=== PATIENT | male | born 1960 | race Caucasian/White ===

== ENCOUNTER 2018-11-24 12:58 | Inpatient (IN) | payer OTHER ==
[~2018-11-24] VITALS: Ht 167.6 cm; Wt 59.0 kg
[2018-11-24 13:18] VITALS: Ht 167.6 cm; Wt 59.0 kg
--- NOTE | 2018-11-24 13:43 | NUR ---
DR HAYDEN AT BEDSIDE FOR EVAL. PT HERE FOR N/V FOR 3 DAYS WITH CHILLS. UNABLE TO EAT OR KEEP ANY FLUIDS DOWN. PT C/O PAIN GENERALIZED 07/10. PT ARRIVES ALERT AND ORIENTED WITH NO DISTRESS NOTED. DR HAYDEN SAW PT. UPON ARRIVAL PT HAD HIGH BLOOD SUGAR AND BROUGHT TO BED FOR MD BOYD
--- NOTE | 2018-11-24 14:39 | NUR ---
PT LEFT FOR CT VIA RNEY
--- NOTE | 2018-11-24 14:49 | NUR ---
PT BACK FROM CT VIA [facility]
[2018-11-24] MEDS ORDERED: METFORMIN HCL1000 MG PO (14:58)
[2018-11-24] MEDS ORDERED: LANTUS SOLOS100 U/M1 SQ (14:58)
[2018-11-24] MEDS ORDERED: HUMI SC (14:59)
[2018-11-24 15:00] LABS: BASOPHIL % 0.1 % (0-2); PLATELET COUNT 290 x10^3mcL (130-400); RED CELL DISTRIBUTION WIDTH 13.2 % (11.5-14.5)
--- NOTE | 2018-11-24 15:01 | NUR ---
PT TO BE PREPPED FOR ADMISSION TO ICU
[2018-11-24 15:13] LABS: ALBUMIN 3.9 g/dL (3.4-5.0); ALKALINE PHOSPHATASE 67 U/L (46-116); ALT/SGPT 15 U/L (16-63); AST/SGOT 11 U/L (15-37); BILIRUBIN TOTAL 0.6 mg/dL (0.20-1.00); CHLORIDE SERUM 92 mmol/L (98-107); GFR1 37 mL/min; MAGNESIUM 2.1 mg/dL (1.8-2.4); POTASSIUM SERUM 3.9 mmol/L (3.5-5.1); SODIUM SERUM 134 mmol/L (136-145); TOTAL PROTEIN, SERUM 8.2 g/dL (6.4-8.2)
[2018-11-24 15:31] LABS: UA SPECIFIC GRAVITY >=1.030 (1.005-1.035); microscopic required? YES; urine erythrocyte NEGATIVE (NEGATIVE)
[2018-11-24 15:34] LABS: GLUCOSE SERUM 560 mg/dL (74-106)
[2018-11-24 15:52] LABS: AMPHETAMINE QUAL UR NONE DETECTED (See below)
[2018-11-24 16:00] LABS: CARBON DIOXIDE 6.3 mmol/L (21-32)
[2018-11-24 16:07] LABS: CHOLESTEROL/HDL RATIO 4.1; PHOSPHOROUS 6.2 mg/dL (2.5-4.9)
[2018-11-24 16:08] LABS: T3 TOTAL 0.34 ng/mL
[2018-11-24 16:17] LABS: FREE T4 1.04 ng/dL (0.76-1.46); FREE THYROXINE INDEX 2.8 ug/dL (1.4-4.5); T4(THYROXINE) 8.3 ug/dL (4.7-13.3)
--- NOTE | 2018-11-24 16:25 | NUR ---
INSULIN DRIP STARTED PER DR HAYDEN ORDERS AT 6UNITS PER HOUR
--- NOTE | 2018-11-24 16:27 | NUR ---
REPORT GIVEN TO TREVER ICU NURSE
--- NOTE | 2018-11-24 16:35 | NUR ---
PT ARRIVED FROM ED AT THIS TIME VIA [facility] ACCOMPANIED BY RN AND ERT. ATTACHED TO COOK SAUCE. PT AAOX4. SPEECH SLURRED, APPROPRIATE. NO FACIAL DROOP. PUPILS 3 MM, BRISK AND PERRLA. RA. CHEST EXPANSION SYMM, BREATHING E/U AND REGULAR EFFORT. LUNG SOUNDS CTA IN BILATERAL LOBES. ABD SOFT, NONDISTENDED. BOWEL SOUNDS ACTIVE X4 QUADRANTS. VOIDS TO URINAL. DENIES DYSURIA. REDNESS NOTED TO TISSUE SURROUNDING OU. PULSES MODERATE X4. EXTREMITIES WARM, DRY AND PINK. NO EDEMA NOTED. NO COUGH NOTED. CAP REFILL IMM. ABLE TO TRANSFER FROM [facility] TO ICU BED W/O ASSISTANCE. LAC PERIPHERAL IV INFUSING, SITE WNL AND DRESSING CDI. NS AND INSULIN ATTACHED TO PT, CLAMPED FOR TRANSFER. VS ON ARRIVAL: TEMP 97.8, HR 117, BP 136/88 (104), RR 18, O2 100%, HT 5'6", WT 53.5 KG
--- NOTE | 2018-11-24 16:40 | NUR ---
YOKASTA HOSKINS RN AND MYSELF SPEAKING WITH PT AT BEDSIDE. STS HE HAS BEEN RECEIVING TREATMENT FOR HIS DIABETES AND THAT "IT CAN GO AWAY". FERMENTOLOGIST INFORMED PT THAT DIABETES IS NOT CURABLE BUT IT IS MANAGEABLE. PT STS THAT HIS DIABETES HAS GONE AWAY. ASKED PT IF HE WOULD LIKE TO RECEIVE DIABETES MANAGEMENT EDUCATION DURING HIS STAY AND PT STS "I JUST WANT TO GET BETTER AND LEAVE".
[2018-11-24 16:44] LABS: AMYLASE 26 U/L (25-115); LIPASE 76 IU/L (73-393)
--- NOTE | 2018-11-24 16:49 | NUR ---
IVF OF NS INITIATED AT 250 ML/HR AMD INSULIN DRIP RESUMED AT 0.01 U/KG/HR.
--- NOTE | 2018-11-24 17:04 | NUR ---
PTS SON, JAELLE, AND AT BEDSIDE.
[2018-11-24 17:05] VITALS: BP 135/88
[2018-11-24 18:28] VITALS: BP 135/88
--- NOTE | 2018-11-24 19:01 | NUR ---
REPORT GIVEN TO LENIN CHAUDHRY. ALL QUESTIONS ADDRESSED. WILL ENDORSE CARE
[2018-11-24 19:18] VITALS: BP 132/82
--- NOTE | 2018-11-24 19:30 | NUR ---
RECEIVED REPORT FROM TREVER CHAUDHRY FOR CONTINUITY OF CARE. PT SEEN LYING IN BED WITH AT BEDSIDE. PT IS A/O X4, SPEECH SLIGHTLY SLURRED BUT APPROPRIATE. PTS FACE AND NECK AREA APPEARS FLUSHED. PT DENIES ANY PAIN. DENIES ANY N/V/D AT THIS TIME. NO ACUTE DISTRESS NOTED. NO SOB NOTED, RESPS E/U ON ROOM AIR. CHEST RISE EQUAL AND SYMMETRICAL. LUNG SOUNDS CLEAR LITA. ABD FLAT, SOFT, NONTENDER TO TOUCH. BOWEL SOUNDS ACTIVE. SKIN INTACT. IV TO LAC G 20 INTACT AND PATENT, DSG CDI. IVF NS INFUSING @ 250 ML/HR. INSULIN GTT INFUSING @ 0.1 UNITS/KG/HR. GEN WEAKNESS NOTED. ABLE TO MOVE ALL EXT. PT ABLE TO REPOSITION SELF. PT TEACHING PROVIDED REGARDING DKA PROTOCOL AND PLAN OF CARE, VERBALIZED UNDERSTANDING. INSTRUCTED TO CALL FOR ANY ASSISTANCE. CALL LIGHT WITHIN REACH. WILL CONTINUE TO MONITOR.
[2018-11-24 20:17] LABS: CALCIUM 7.3 mg/dL (8.5-10.1); CARBON DIOXIDE 14.1 mmol/L (21-32); CREATININE SERUM 1.7 mg/dL (0.7-1.3); MAGNESIUM 1.6 mg/dL (1.8-2.4); PHOSPHOROUS 1.7 mg/dL (2.5-4.9)
--- NOTE | 2018-11-24 21:15 | NUR ---
BS 174. INSULIN GTT TITRATED TO 0.05 UNITS/KG/HR. IVF CHANGED TO D5 1/2 NS @ 250ML/HR. DR STEPHEN MADE AWARE.
--- NOTE | 2018-11-24 22:34 | NUR ---
PT AWAKE, PROVIDED SANDWICH, SUGAR FREE PUDDING, AND APPLE JUICE.
[2018-11-24 23:36] VITALS: BP 124/70
--- NOTE | 2018-11-24 23:50 | NUR ---
BS 223, IVF TITRATED TO 230ML/HR.
--- NOTE | 2018-11-25 00:03 | NUR ---
LAB AT BEDSIDE
--- NOTE | 2018-11-25 01:07 | NUR ---
BS 249, IVF TITRATED TO 200 ML/HR
[2018-11-25 01:08] LABS: CALCIUM 7.3 mg/dL (8.5-10.1); CARBON DIOXIDE 15.9 mmol/L (21-32); CREATININE SERUM 1.6 mg/dL (0.7-1.3); MAGNESIUM 1.5 mg/dL (1.8-2.4); PHOSPHOROUS 1.3 mg/dL (2.5-4.9)
--- NOTE | 2018-11-25 01:50 | NUR ---
NS 239, IVF TITRATED TO 180 ML/HR.
--- NOTE | 2018-11-25 02:57 | NUR ---
BS 261, IVF TITRATED TO 150 ML/HR.
[2018-11-25 03:13] VITALS: BP 119/76
--- NOTE | 2018-11-25 04:16 | NUR ---
BS 244, IVF TITRATED TO 130ML/HR.
[2018-11-25 04:48] LABS: BASOPHIL % 0.3 % (0-2); PLATELET COUNT 211 x10^3mcL (130-400); RED CELL DISTRIBUTION WIDTH 12.8 % (11.5-14.5)
[2018-11-25 04:59] LABS: CALCIUM 7.4 mg/dL (8.5-10.1); CARBON DIOXIDE 17.8 mmol/L (21-32); CREATININE SERUM 1.5 mg/dL (0.7-1.3); MAGNESIUM 1.6 mg/dL (1.8-2.4); PHOSPHOROUS 1.4 mg/dL (2.5-4.9)
[2018-11-25 05:02] LABS: POTASSIUM SERUM 2.7 mmol/L (3.5-5.1)
--- NOTE | 2018-11-25 06:00 | NUR ---
DR BLANKENSHIP AT BEDSIDE. UPDATED ON STATUS. MADE AWARE REGARDING K+ 2.7. STATES WILL ORDER K-RIDER.
[2018-11-25 07:58] VITALS: BP 122/72
[2018-11-25 08:58] LABS: CALCIUM 7.8 mg/dL (8.5-10.1); CARBON DIOXIDE 17.3 mmol/L (21-32); CREATININE SERUM 1.4 mg/dL (0.7-1.3); MAGNESIUM 1.5 mg/dL (1.8-2.4); PHOSPHOROUS 1.3 mg/dL (2.5-4.9)
[2018-11-25 09:04] LABS: POTASSIUM SERUM 2.7 mmol/L (3.5-5.1)
--- NOTE | 2018-11-25 09:31 | NUR ---
INITIATED 40 MEQ IV K-RIDER WITH LIDOCAINE FOR K+ 2.7.
--- NOTE | 2018-11-25 10:09 | NUR ---
BS 177 D51/2NS 150.
--- NOTE | 2018-11-25 10:26 | NUR ---
PT AMBULATED WITH STEADY GAIT TO BEDSIDE COMMODE. CALL LIGHT WITHIN REACH.
--- NOTE | 2018-11-25 10:33 | NUR ---
DR. SANCHEZ AT BEDSIDE WITH RESIDENTS AT ROUNDS. PROIVDED UPDATES, RECIEVED NO NEW ORDERS.
--- NOTE | 2018-11-25 11:13 | NUR ---
BS 164, LUNCH TRAY COMING. INSULIN DRIP AT 0.05U/HR.
[2018-11-25 11:30] VITALS: BP 113/70
--- NOTE | 2018-11-25 11:32 | NUR ---
GEMMA CODING DIRECTOR AT BEDSIDE FOR LAB DRAWN.
--- NOTE | 2018-11-25 11:32 | NUR ---
NEGRO FROM [facility], PROVIDED UPDATES TO HER. LENIN AT BEDSIDE EDUCATING PT.
[2018-11-25 12:02] LABS: CALCIUM 7.9 mg/dL (8.5-10.1); CARBON DIOXIDE 18.8 mmol/L (21-32); CHLORIDE SERUM 108 mmol/L (98-107); CREATININE SERUM 1.3 mg/dL (0.7-1.3); GFR1 > 60 mL/min; GLUCOSE SERUM 164 mg/dL (74-106); MAGNESIUM 2.2 mg/dL (1.8-2.4); PHOSPHOROUS 1.2 mg/dL (2.5-4.9); POTASSIUM SERUM 3.6 mmol/L (3.5-5.1); SODIUM SERUM 137 mmol/L (136-145)
--- NOTE | 2018-11-25 13:56 | NUR ---
Initial Nutrition Assessment- Dx: DKA PMHx: DM type 2 PSHx: none Labs: K 2.7L, BG 149H, BUN 21H, CRE 1.4H, Ca 7.8L, TG 257H, CHOL 226H, HbA1c 10H Meds: colace, D5%/NaCl IV, humulin, zosyn Diet: CCHO diet PO Intake: 40% of snack 11/25, pt ate pudding, sandwich and apple juice Ht: 5'6 Wt: 118 lb, 54 kg BMI: 21 kg/m2 IBW: 142 lb, 65 kg %IBW: 83 UBW: unknown Age: 57 yrs old Food Allergies: unknown Skin: is intact. Juan Carlos: 19 Edema: no edema noted. GI: abd is soft and non-distended w/ active bowel sounds. Last BM 11/23/18, loose. Trigger received for unintentional wt loss >10# x1 month. Pt is admitted w/ cc of 2 days of worsening generalized weakness associated nausea, non-bloody vomiting and lack of appetite w/ polyuria and polydipsia. Pt stated that he skipped his insulin on the day of admission because he didn't have any appetite and did not eat anything. Pt seen in bed w/ rags laborer at bedside for blood draw. Pt did not want to s/w RD after I stated that nutrition education will be provided after assessment interview. RD reported pt's behavior to RN and RN reported that pt is in denial of his current condition. No plans as of yet to transfer pt as pt is still on insulin drip. No family at bedside at this time. RN also reported that pt w/ poor appetite, he only had milk, juice and a few bites of toast for breakfast this morning. Pt is not yet meeting adequate nutrition. Pt is non-compliant and RD was unable to verify trigger for unintentional wt loss >10# x1 month. Awaiting call back from MD for diet rec. Problem with: N/V/D/C: none Problems with: Chewing: no Swallowing: no Current appetite: poor appetite Recent wt change: unknown %wt change: n/a Vitamin/Supplement use: unknown Special diet at home: regular diet Physical activity: none Education: was not provided d/t pt declined to s/w RD. Estimated Nutritional Needs Based on ideal body weight 65 kg Energy: 1187-2216 kcal/d (25-30 kcal/kg-maintenance) Protein: 52-65 g/d (.8-1 g/kg-maintenance and preservation of lean body mass) Fluid: 0374-9904 ml/d (1 ml/kcal-fluid balance) or per doctor Nutrition Diagnosis Altered nutrition related labs related to endocrine dysfunction as evidenced by elevated BG and HbA1c lab values. Increased risk for malnutrition related to chronic illness as evidenced by possible unintentional wt loss >10# x 1 month and poor PO intake. Intervention 1. Recommend adding Low Cholesterol to current [facility] diet. 2. Encourage pt to increase PO intake. Monitor/Evaluate Goal: PO intake at least 75% of estimated needs Monitor: PO intake, Labs, GI function F/U in 2-3 days as high risk (11/27-11/28)
--- NOTE | 2018-11-25 13:57 | NUR ---
1. Recommend adding Low Cholesterol to current [facility] diet. 2. Encourage pt to increase PO intake.
--- NOTE | 2018-11-25 14:23 | NUR ---
2nd try for nutrition education. Pt is sleeping per RN Min. 11/25 1015.
--- NOTE | 2018-11-25 15:10 | NUR ---
BLOOD SUGAR 211, LOWERE D51/2NS TO ACHIEVE BLOOD SUGAR LOWER THAN 150 PER DKA PROTOCOL.
--- NOTE | 2018-11-25 15:10 | NUR ---
BLOOD SUGAR 211, LOWERED D51/2NS TO 100ML/HR TO ACHIEVE BLOOD SUGAR BETWEEN 150-200 PER DKA PROTOCOL.
[2018-11-25 15:12] VITALS: BP 104/63
[2018-11-25 15:57] LABS: CALCIUM 7.7 mg/dL (8.5-10.1); CARBON DIOXIDE 19.5 mmol/L (21-32); CREATININE SERUM 1.4 mg/dL (0.7-1.3); PHOSPHOROUS 1.5 mg/dL (2.5-4.9); POTASSIUM SERUM 3.4 mmol/L (3.5-5.1)
--- NOTE | 2018-11-25 16:05 | NUR ---
BLOOD SUGAT 156 INCREASED D51/2NS TO 130ML/HR TO ACHIEVE BLOOD SUGAR BETWEEN 150-200 PER DKA PROTOCOL.
--- NOTE | 2018-11-25 16:20 | NUR ---
ANION GAP 10.5 DR. MARTÍNEZ IS NOTIFIED.
--- NOTE | 2018-11-25 18:10 | NUR ---
REPORT GIVEN TO DELMAR CHAUDHRY PT WILL BE TRANSFERRING TO ROOM 205 TO M/S BY WHEELCHAIR ON ROOM AIR.
--- NOTE | 2018-11-25 18:41 | NUR ---
RECEIVED PT TRANSFER FROM ICU BY WHEELCHAIR. PT'S FRIENDS AT BED SIDE. PT AA/O X 3. PT AMBULATED WITH STEADY GAIT. PT BREATHING ON RA, EVEN, UNLABORED. PT COMPLAIN OF EPIGASTRIC PAIN, WILL PROVIDE MANAGEMENT PER ORDER. IV SITE PATENT, INTACT. IVF INFUSING WELL.
[2018-11-25 18:50] VITALS: BP 136/82
--- NOTE | 2018-11-25 19:14 | NUR ---
ENDORSE PT CARE TO COMING NURSE. PT REST ON BED, NO COMPLAIN OF PAIN AT THIS TIME. NO DISTRESSED NOTED.
--- NOTE | 2018-11-25 19:15 | NUR ---
PT RECIEVED FROM THE DAY SHIFT RN. PT IS ALERT AND ORIENTED X4, NO DISTRESS NOTED, SAFETY AND COMFORT MEASURES IMPLEMENTED, BED IN LOWEST POSITION, CALL LIGHT WITHIN REACH, WILL CONTINUE TO MONITOR AT THIS TIME.
[2018-11-25 20:55] VITALS: BP 125/78
--- NOTE | 2018-11-26 00:45 | NUR ---
PT IS RESTING IN BED WITH EYES CLOSED AT THIS TIME. NO DISTRESS NOTED, SAFETY AND COMFORT MEASURES MAINTAINED, BED IN LOWEST POSITION, CALL LIGHT WITHIN REACH. WILL CONTINUE TO MONITOR AT THIS TIME.
--- NOTE | 2018-11-26 01:52 | NUR ---
PT IS RESTING IN BED WITH EYES CLOSED AT THIS TIME. PT IV IS INFUSING AT THIS TIME AND INTACT. NO DISTRESS NOTED, SAFETY AND COMFORT MEASURES MAINTAINED, BED IN LOWEST POSITION, CALL LIGHT WITHIN REACH. WILL CONTINUE TO MONITOR.
[2018-11-26 05:15] VITALS: BP 119/83
--- NOTE | 2018-11-26 05:31 | NUR ---
PT SLEPT IN LONG INTERVALS THROUGHOUT THE NIGHT, LEVEMIR 30 UNITS GIVEN AND 12 UNITS OF REGULAR INSULIN GIVEN FOR BG OF 335 EARLIER IN THE SHIFT, RANDOM BG CHECK DONE AT 0100 AND WAS 176. PT GIVEN PUDDING TO EAT BUT PT DID NOT FINSIH THE PUDDING. MORNING BG CHECK WAS 46 1ST CHECK AND 2ND CHECK WAS 42. D5 [address] ACEVEDO MADE AWARE OF SITUATION. WILL RECHECK AT 0540. PT WAS ASYMPTOMATIC, DENIES DIZZINESS, NO CONFUSION NOTED, PT WAS ALERT AND ORIENTED X4, SAFETY AND COMFORT MEASURES MAINTAINED, BED IN LOWEST POSITION, CALL LIGHT WITHIN REACH. WILL ENDORSE CONTINUITY OF CARE TO THE ONCOMING RN, WILL CONTINUE TO MONITOR AT THIS TIME.
--- NOTE | 2018-11-26 05:40 | NUR ---
BG RECHECK DONE BG WAS 192, NO INSULIN GIVEN DUE TO D5 50 ML GIVEN TO THE PATIENT. WILL CONTINUE TO MONITOR AT THIS TIME.
[2018-11-26 06:59] LABS: BASOPHIL % 0.6 % (0-2); PLATELET COUNT 161 x10^3mcL (130-400); RED CELL DISTRIBUTION WIDTH 13.3 % (11.5-14.5)
[2018-11-26 07:08] LABS: CALCIUM 7.9 mg/dL (8.5-10.1); CHLORIDE SERUM 108 mmol/L (98-107); CREATININE SERUM 0.9 mg/dL (0.7-1.3); GFR1 > 60 mL/min; GLUCOSE SERUM 184 mg/dL (74-106); POTASSIUM SERUM 3.4 mmol/L (3.5-5.1); SODIUM SERUM 141 mmol/L (136-145)
--- NOTE | 2018-11-26 07:45 | NUR ---
RECEIVED PT SLEEPING IN THE BED. EASILY AROUSABLE AND VERBALLY RESPONDING. DENIES ANY PAIN. STABLE. SAFTEY PRECAUTIONS ARE IN PLACE. WILL MONITOR.
[2018-11-26 09:43] VITALS: BP 135/80
--- NOTE | 2018-11-26 13:30 | NUR ---
PT RESTING IN BED COMFORTABLY AFTER LUNCH. PT IS STABLE. DENIES PAIN. MILD FATIGUE NOTED. SAFTEY PRECAUTIONS ARE IN PLACE. WILL MONITOR.
--- NOTE | 2018-11-26 16:45 | NUR ---
PT RESTING IN BED COMFORTABLY. STABLE. FAMILY AT BEDSIDE. WILL MONITOR.
[2018-11-26 17:44] VITALS: BP 144/88
--- NOTE | 2018-11-26 19:15 | NUR ---
PT RESTING IN BED COMFORTABLY. DENIES PAIN THIS TIME. STABLE. GAVE REPORT TO BATTERY INSPECTOR NURSE.
--- NOTE | 2018-11-26 19:30 | NUR ---
PT RECIEVED FROM THE DAY SHIFT RN, PT IS ALERT AND ORIENTED X4, PT IS CALM AND COOPERATIVE WITH CARE. NO DISTRESS NOTED, NO JVD NOTED, NO SOB NOTED, SAFETY AND COMFORT MEASURES MAINTAINED, BED IN LOWEST POSITION, CALL LIGHT WITHIN REACH, WILL CONTINUE TO MONTIOR AT THIS TIME.
--- NOTE | 2018-11-26 20:43 | NUR ---
DR STEPHEN MADE AWARE OF BG BEING 294, PER DR STEPHEN HOLD REGULAR INSULIN DOSE AND ONLY GIVE THE 15 UNITS OF LEVEMIR AT THIS TIME. NO FURTHER ORDERS AT THIS TIME.
[2018-11-26 21:00] VITALS: BP 128/80
--- NOTE | 2018-11-27 02:00 | NUR ---
PT IS RESTING IN BED WITH EYES CLOSED AT THIS TIME. NO ACUTE DISTRESS NOTED, NO SOB NOTED. SAFETY AND COMFORT MEASURES MAINTAINED, BED IN LOWEST POSITION, CALL LIGHT WITHIN REACH, WILL CONTINUE TO MONITOR AT THIS TIME.
--- NOTE | 2018-11-27 04:03 | NUR ---
PT IS RESTING IN BED WITH EYES CLOSED AT THIS TIME. NO DISTRESS NOTED, SAFETY AND COMFORT MEASURES IN PLACE, BED IN LOWEST POSITION, CALL LIGHT WITHIN REACH, WILL CONTINUE TO MONITOR AT THIS TIME.
[2018-11-27 04:43] VITALS: BP 117/79
--- NOTE | 2018-11-27 05:05 | NUR ---
PT RESTED IN LONG INTERVALS THROUGHOUT THE SHIFT. NO ACUTE DISTRESS NOTED, PT HAS BEEN CALM AND COOPERATIVE WITH CARE. NO SOB NOTED, NO COMPLAINT OF PAIN AT THIS TIME. PT TOLERATING DIET WELL. SAFETY AND COMFORT MEASURES MAINTAINED, BED IN LOWEST POSITION, CALL LIGHT WITHIN REACH, WILL ENDORSE CONTINUITY OF CARE TO THE ONCOMING RN, WILL CONTINUE TO MONITOR AT THIS TIME.
[2018-11-27 07:07] LABS: BASOPHIL % 0.6 % (0-2); PLATELET COUNT 168 x10^3mcL (130-400)
[2018-11-27 07:08] LABS: CALCIUM 8.2 mg/dL (8.5-10.1); CARBON DIOXIDE 29.5 mmol/L (21-32); CHLORIDE SERUM 105 mmol/L (98-107); CREATININE SERUM 0.7 mg/dL (0.7-1.3); GFR1 > 60 mL/min; GLUCOSE SERUM 78 mg/dL (74-106); SODIUM SERUM 142 mmol/L (136-145)
[2018-11-27 07:26] LABS: POTASSIUM SERUM 2.9 mmol/L (3.5-5.1)
--- NOTE | 2018-11-27 09:06 | NUR ---
AM MEDS GIVEN. PT TOLERATED WELL. NO SIGNS OF RESPIRATORY DISTRESS NOTED. PT DENIES ANY SOB. WILL CONTINUE TO MONIOTR. CALL LIGHT IN REACH. BED IN LOWEST POSITION.
[2018-11-27 09:31] VITALS: BP 123/68
--- NOTE | 2018-11-27 11:15 | NUR ---
PT SITTING UP IN BED WATCHING TV. NO RESP DISTRESS NOTED. DENIES EXCESSIVE PAIN AT THIS TIME. BED IN LOWEST POSITION. CALL LIGHT IN REACH. WILL CONTINUE TO MONITOR.
--- NOTE | 2018-11-27 12:36 | NUR ---
Nutrition Education Provided nutrition education on the topics of Carbohydrate Counting for Diabetes. Handouts from [employer] were reviewed and provided to pt. RD contact information were provided as well for future nutrition related questions. Pt requested for [place] version on the handouts. RD to provide.
--- NOTE | 2018-11-27 12:47 | NUR ---
Follow-up Nutrition Assessment- Dx: DKA Labs: (11/27) K 2.9 L, BG 78 WNL (improved), Ca 8.2 L, H/H 13.9 WNL/39 L Meds: colace, D50%, humulin, K-phos neutral, levemir, zofran Diet: CCHO diet w/ Glucerna QD x 2 days PO intake:(11/25) 23% x 3 meals- negligible PO intake, (11/26) 83% x 3 meals (good-improved) Weights: (11/24) 118 lb, (11/25) 130 lb, (11/27) 129 lb (by RD w/ bedscale) Skin: is intact. Juan Carlos: 21 Edema: no edema noted. Last BM: 11/25/18. Abd is soft and non-tender w/ active bowel sounds. Pt first seen last Friday (11/25) as RD received nursing trigger for unintentional wt loss >10# m2vjanc but pt refused to s/w RD for assessment and nutrition education. Per PREPARED FOODS SUPERVISOR notes, for poss discharge tomorrow (11/28) once BS is stable. Pt seen for F/U today and pt appeared more awake and more receptive. Pt also verified unintentional wt loss stating that his usual wt is 127 lb and upon admission, he was told that his wt was 118 lb. (9 lb wt loss in 1 week-7% severe wt loss). Pt also reported that he has been following a special diet at home to better control his blood sugar levels. He eats vegetables, fish, chicken. Pt's appetite has improved a lot since day of admission. Pt denied any N/V/D/C or any difficulty chewing/swallowing food. Per RN, pt still snacks a lot throughout the day. Most recent POC BG was 342. RD provided nutrition education on Carbohydrate Counting for Diabetes. Please see Nutrition note for details. Estimated Nutritional Needs based on previous assessment: Energy: 5817-5005 kcal/d (25-30 kcal/kg-maintenance) Protein: 52-65 g/d (.8-1 g/kg-maintenance and prevention of lean body mass losses) Fluid: 2457-3299 mL (1 mL/kcal or per MD order-for fluid balance and maintenance) Nutrition Diagnosis 1. Altered nutrition related labs related to endocrine dysfunction as evidenced by elevated BG and HbA1c lab values. (*ongoing) 2. Increased risk for malnutrition related to chronic illness as evidenced by poss unintentional wt loss >10 # x 1 month and poor PO intake. (*ongoing) Intervention 1. Continue CCHO diet w/ Glucerna QD. Oral nutrition supplement will provide: 220 kcal and 10gm protein daily. 2. Encourage pt to increase PO intake. Monitor/Evaluate Previous goal: PO intake at least 75% of estimated needs Goal: PO intake at least 75% of estimated needs Monitor: PO intake, Labs, GI function F/U in 3-5 days as moderate risk (11/30-12/02)
--- NOTE | 2018-11-27 12:47 | NUR ---
1. Continue CCHO diet w/ Glucerna QD. Oral nutrition supplement will provide: 220 kcal and 10gm protein daily. 2. Encourage pt to increase PO intake. Nutrition Education was provided 11/27/18.
[2018-11-27 16:56] VITALS: BP 131/87
--- NOTE | 2018-11-27 17:34 | NUR ---
PT SITTING IN BED NO APPARENT DISTRESS NOTED AT THIS TIME. MED SURG. DENIES CHEST PAIN/PRESSURE/SIERRA/DIZZINESS. RESPIRATIONS EQUAL AND UNLABORED ON RA. DENIES ANY SOB. AMBULATED WITH ASSIST PER BRP. SKIN W/D/I. IV PATENT AND INTACT. DENIES ANY N/V. BED IN LOWEST POSITION. CALL LIGHT IN REACH. WILL ENDORSE TO SUBSTATION OPERATOR RN.
--- NOTE | 2018-11-27 19:34 | NUR ---
RECEIVED PATIENT FROM DAY SHIFT RN. PATIENT IS ALERT AND ORIENTED X4. MEDSURGE PATIENT DENIES CHEST PAIN. PATIENT DENIES HEADACHE OR DIZZINESS.LUNG SOUNDS DIMINISHED ON RA WITH NO SOB. GENERALIZED WEAKNESS. PATIENT USES URINAL AT BEDSIDE. IV LAC AND RAC PATENT ANDS SL. CALL BUTTON WITHIN IN REACH. SAFETY PRECAUTIONS IN PLACE. WILL CONTINUE TO MONITOR.
[2018-11-27 21:08] VITALS: BP 114/74
--- NOTE | 2018-11-27 23:26 | NUR ---
PATIENT REQUESTING SLEEPING MEDICATION, DR AECVEDO MADE AWARE AND AWAITING NEW ORDER.
--- NOTE | 2018-11-27 23:47 | NUR ---
PATIENT MEDICATED PER EMAR. DENIES ANY PAIN. SAFETY PRECAUTIONS IN PLACE. WILL CONTINUE TO MONITOR.
--- NOTE | 2018-11-28 02:12 | NUR ---
ROUNDS MADE, PATIENT IS ASLEEP AT THIS TIME NO SIGNS OF DISTRESS NOTED. SAFETY PRECAUTIONS IN PLACE. WILL CONTINUE TO MONITOR.
--- NOTE | 2018-11-28 02:57 | NUR ---
PATIENT REQUESTING SLEEPING AID MEDICATION, STATES EARLIER DOSE DID NOT WORK. DR ACEVEDO MADE AWARE, AWAITING NEW ORDER.
--- NOTE | 2018-11-28 03:54 | NUR ---
ROUNDS MADE, PATIENT IS ASLEEP AT THIS TIME, BREATHING EVEN AND UNLABORED NO SIGNS OF DISTRESS NOTED. SAFETY PRECAUTIONS IN PLACE. WILL CONTINUE TO MONITOR.
[2018-11-28 06:05] VITALS: BP 121/69
--- NOTE | 2018-11-28 06:17 | NUR ---
PATIENT IS ALERT AND OREINTED X4. MED SURGE PATIENT. PATIENT DENIES ANY PAIN. LUNG SOUNDS DIMINISHED ON RA WITH NO RESP DISTRESS. PATIENT IV LAC AND RFA PATENT SL. PATIENT SLEPT ON AND OFF THROUGHOUT THE NIGHT. GENERALIZED WEAKNESS NOTED. SAFETY PRECAUTIONS IN PLACE. WILL CONTINUE TO MONITOR AND ENDORSE CARE TO DAY SHIFT RN.
[2018-11-28 06:19] LABS: CALCIUM 8.5 mg/dL (8.5-10.1); CARBON DIOXIDE 31.9 mmol/L (21-32); CHLORIDE SERUM 101 mmol/L (98-107); CREATININE SERUM 0.9 mg/dL (0.7-1.3); GFR1 > 60 mL/min; GLUCOSE SERUM 184 mg/dL (74-106); POTASSIUM SERUM 4.1 mmol/L (3.5-5.1); SODIUM SERUM 140 mmol/L (136-145)
[2018-11-28 06:40] LABS: BASOPHIL % 0.7 % (0-2); PLATELET COUNT 188 x10^3mcL (130-400); RED CELL DISTRIBUTION WIDTH 13.2 % (11.5-14.5)
--- NOTE | 2018-11-28 07:29 | NUR ---
PATIENT IS RESTING IN BED, DENIES ANY PAIN NO SIGNS OF DISTRESS NOTED. SAFETY PRECAUTIONS IN PLACE. ENDROSED CARE TO DAY SHIFT RN, ALL QUESTIONS ADDRESSED.
[2018-11-28 07:59] VITALS: BP 121/75
--- NOTE | 2018-11-28 08:50 | NUR ---
PT SITTING IN BED ON PHONE. GIVEN PO MEDS. TOLERATED WELL. NO ACUTE DISTRESS NOTED. WILL CONTINUE TO MONITOR. BED IN LOWEST POSITION. CALL LIGHT IN REACH.
[2018-11-28 09:10] VITALS: BP 121/75
[2018-11-28 09:34] VITALS: BP 121/75
[2018-11-28] MEDS ORDERED: LEVEMIR100 U/M1 SQ (10:56)
--- NOTE | 2018-11-28 11:50 | NUR ---
PT RESTING IN BED. GIVEN PO MEDS. TOLERATED WELL. UPDATED ON D/C TODAY. WILL CONTINUE TO MONITOR. BED IN LOWEST POSITION. CALL LIGHT IN REACH.
--- NOTE | 2018-11-28 14:05 | NUR ---
PT REQUESTING BLOOD PRESSURE AND BLOOD SUGAR CHECK BEFORE DISCHARGE, BLODD PRESSURE 120/73, BLOOD SUGAR 319.
--- NOTE | 2018-11-28 14:08 | NUR ---
PT GIVEN D/C INSTRUCTION. PT GIVEN PRESCRIPTION FOR NEW MEDS. PT MADE AWARE OF FOLLOW UP APPT. PT VERBALIZED UNDERSTANDING. IV TO LT AC REMOVED INTACT, NO REDNESS OR SWELLING NOTED. IV TO RT FA REMOVED INTACT, NO REDNESS OR SWELLING NOTED. PT INSTRUCTED TO CALL WHEN RIDE IS AVAILABLE TO BE TAKEN DOWN VIA WHEELCHAIR.
--- NOTE | 2018-11-28 14:12 | NUR ---
PT OFF UNIT VIA WHEELCHAIR WITH ALL BELONGINGS ESCORTED BY SMALL LOT OPERATOR AND FAMILY.
== END 2018-11-28 14:16 | disposition home or self-care (01) | DRG 420 ==
LOC: ED 12:58 → IC 14:49 → MU 14:49 → IC 15:55 → MU 11-25 18:21
PROVIDERS: Emergency Medicine; ADMIT Internal Medicine
DX: E11.10 Type 2 diabetes mellitus with ketoacidosis without coma (principal); N17.0 Acute kidney failure with tubular necrosis; D68.69 Other thrombophilia; E83.39 Other disorders of phosphorus metabolism; E86.0 Dehydration; K37 Unspecified appendicitis; E87.6 Hypokalemia; E78.5 Hyperlipidemia, unspecified; E05.80 Other thyrotoxicosis without thyrotoxic crisis or storm; D72.829 Elevated white blood cell count, unspecified; Z79.4 Long term (current) use of insulin; Z68.1 Body mass index [BMI] 19.9 or less, adult; Z79.84 Long term (current) use of oral hypoglycemic drugs; Z91.14 Patient's other noncompliance with medication regimen
CPT/HCPCS: 36600; 82962; 84439; C9113; G0480; J1815; J2405; J2543; J3475; J3480; J3490; J7030; Q0092

== ENCOUNTER 2020-09-10 10:25 | Inpatient (IN) | payer OTHER ==
[~2020-09-10] VITALS: Ht 165.1 cm; Wt 65.8 kg
[~2020-09-10 10:25] MED LIST: HUMI SC; LANTUS SOLOS100 U/M1 SQ; LEVEMIR100 U/M1 SQ; METFORMIN HCL1000 MG PO
--- NOTE | 2020-09-10 10:35 | NUR ---
MD HAYDEN MADE AWARE OF PTS CURRENT STATUS AT THIS TIME AND REPORTS "DR MCKEON WILL TAKE HIM"
--- NOTE | 2020-09-10 10:35 | NUR ---
SEPSIS FORM STARTED AT THIS TIME. MD HAYDEN MADE AWARE.
--- NOTE | 2020-09-10 11:01 | NUR ---
MSE BY DR. ALEXANDRA.
--- NOTE | 2020-09-10 11:01 | NUR ---
PT BIB BACK TO ROOM 14 WITH RAPID BREATHING, TACHYCARDIC. KUSSMAUL BREATHING NOTED. PT SPEAKING CLEAR 4-5 WORD SENTENCES. CHECKED PT BLOOD SUGAR AND IT READ HIGH X 2 CHECKS. BILATERAL 18G IV INSERTED AND NS STARTED PER PROTOCOL. SPOKE TO DR JACKELYN BAIN AND HE STATES THAT ITS OK TO GIVE 2 LITERS NS BULUS. PT PLACED IN GOWN AND ALL FULL CM. BED IN LOWEST POSITION. WILL CONT TO MONITOR
--- NOTE | 2020-09-10 11:55 | NUR ---
PT AWAKE AND ALERT. RESP EVEN AND RAPID. PT ON FULL CM. PT HAS IV NS AND NS 0.45% INFUSING WITH NO S/S OF INFILTRATION. WILL CONT TO MONITOR
[2020-09-10 12:07] LABS: ALBUMIN 3.8 g/dL (3.4-5.0); ALKALINE PHOSPHATASE 85 U/L (46-116); ALT/SGPT 14 U/L (16-63); AST/SGOT 12 U/L (15-37); BILIRUBIN TOTAL 0.76 mg/dL (0.20-1.00); CALCIUM 8.5 mg/dL (8.5-10.1); CHLORIDE SERUM 79 mmol/L (98-107); CREATININE SERUM 2.6 mg/dL (0.7-1.3); GFR1 27 mL/min; LIPASE 988 IU/L (73-393); TOTAL PROTEIN, SERUM 7.6 g/dL (6.4-8.2)
[2020-09-10 12:26] LABS: PLATELET COUNT 306 x10^3mcL (130-400); RED CELL DISTRIBUTION WIDTH 12.7 % (11.5-14.5)
[2020-09-10 12:32] LABS: CARBON DIOXIDE 6.4 mmol/L (21-32); POTASSIUM SERUM 6.8 mmol/L (3.5-5.1); SODIUM SERUM 119 mmol/L (136-145)
[2020-09-10 13:12] LABS: MONOCYTE 8 % (0-7); SEGMENTED NEUTROPHILS 83 % (37-75); rbc morphology (normal/abnorm) NORMAL (NORMAL)
[2020-09-10 13:15] LABS: GLUCOSE SERUM 1050 mg/dL (74-106)
--- NOTE | 2020-09-10 13:20 | NUR ---
INSULIN DRIP STARTED AT 5U/HR PER EMAR.
--- NOTE | 2020-09-10 13:30 | NUR ---
DR PATLE AT BEDSIDE FOR EXAM.
--- NOTE | 2020-09-10 13:47 | NUR ---
PT RESTING IN BED IN POSITION OF COMFORT WITH MONITOR IN PLACE.
--- NOTE | 2020-09-10 13:49 | NUR ---
POC BLOOD GLUCOSE "HI".
--- NOTE | 2020-09-10 14:43 | NUR ---
PT AWAKE AND ALERT. RESP EVEN AND UNLABORED. PT HAS 5UNITS/HR REGULAR INSULIN INFUSING AND 0.45%NS INFUSING WITH NO S/S OF INFILTRATION. PT GIVEN BLANKETS DUE TO PT STATING "I AM COLD." PT ON FULL CM. PT GIVEN ICE CHIPS PER DR ALEXANDRA VERBAL OK. WILL CONT TO MONITOR.
--- NOTE | 2020-09-10 15:44 | NUR ---
PT AWAKE AND ALERT. RESP EVEN AND UNLABORED. PT LAYING ON LEFT SIDE. IV INFUSING WITH NO S/S WITH OF INFILTRATION. PT ON FULL CM. WILL CONT TO MONITOR
--- NOTE | 2020-09-10 16:04 | NUR ---
PT AWAKE AND ALERT. RESP EVEN AND UNLABORED. PT GETTING SOB WHEN TALKING. PT ON PHONE. PT ON FULL CM. PT MEDICATED PER MD ORDER. SEE EMAR. WILL CONT TO MONITOR
[2020-09-10 16:10] LABS: CALCIUM 7.4 mg/dL (8.5-10.1); CREATININE SERUM 2.2 mg/dL (0.7-1.3); POTASSIUM SERUM 5.3 mmol/L (3.5-5.1)
[2020-09-10 16:28] LABS: CARBON DIOXIDE 5.3 mmol/L (21-32)
--- NOTE | 2020-09-10 17:05 | NUR ---
PT REQUESTING PAIN MEDICATION FOR THROAT PAIN. PT MEDICATED WITH TYLENOL PER PRN ORDER. SEE EMAR. PT AWAKE AND ALERT. AA/OX4. RESP EVEN AND UNLABORED. PT ON FULL CM. WILL CONT TO MONITOR.
--- NOTE | 2020-09-10 18:40 | NUR ---
PT ABLE TO GET UP AND USE BEDSIDE COMMOUD WITH ASSISSTANCE. PT AWAKE AND ALERT. AA/OX4. RESP EVEN AND UNLABORED. PT ON FULL CM. WILL CONT TO MONITOR
--- NOTE | 2020-09-10 18:51 | NUR ---
PT BLOOD SUGAR 291 AT THIS TIME. PT INSULIN TITRATED DOWN TO 3 UNITS AN HOUR PER MD ORDER. MD AWARE. PT AWAKE AND ALERT. RESP EVEN AND UNLABORED. PT ON FULL CM. WILL CONT TO MONITOR
[2020-09-10 19:14] LABS: UA SPECIFIC GRAVITY 1.025 (1.005-1.035); microscopic required? YES
[2020-09-10 19:15] LABS: urine erythrocyte 2+ (NEGATIVE)
--- NOTE | 2020-09-10 19:28 | NUR ---
REPORT CALLED TO ANNETTA RN TO ASSUME CARE OF PT.
--- NOTE | 2020-09-10 19:45 | NUR ---
RECEIVED REPORT FROM ISIDORO CASILLAS. PT TRANPORTED VIA GURNEY TO ICU BED #6. PT AAOX4. NO S/S OF CARDIAC OR RESP DISTRESS NOTED. V/S STABLE. AFEBRILE. PERRLA. ABLE TO FOLLOW ALL COMMANDS. ABLE TO MAKE ALL NEEDS KNOWN. CONTINENT OF BOWEL AND BLADDER. URINAL AT BEDSIDE. UP AD CANDIDO TO BEDSIDE COMMODE. BOWEL SOUNDS ACTIVE. ABDOMEN FLAT AND SOFT. SKIN INTACT. ABLE TO REPOSITION SELF FREELY AND FREQUENTLY. ON INSULIN GTT. CARE PLAN REVIEWED. SAFETY MEASURES AND INTEGRITY MAINTAINED. WILL CONTINUE TO MONITOR.
[2020-09-10 20:18] VITALS: BP 113/73
[2020-09-10 20:34] LABS: CALCIUM 8.1 mg/dL (8.5-10.1); CARBON DIOXIDE 22.5 mmol/L (21-32); CHLORIDE SERUM 109 mmol/L (98-107); CREATININE SERUM 1.1 mg/dL (0.7-1.3); GFR1 > 60 mL/min; GLUCOSE SERUM 147 mg/dL (74-106); POTASSIUM SERUM 4.4 mmol/L (3.5-5.1); SODIUM SERUM 141 mmol/L (136-145)
--- NOTE | 2020-09-10 20:48 | NUR ---
SPOKE TO DR. MICHAUD AND RELAYED LAB RESULTS. STATED TO REJI TO FOLLOW DKA PROTOCOL AT THIS TIME. WILL CONTINUE TO MONITOR.
--- NOTE | 2020-09-10 22:00 | NUR ---
PT IN STABLE CONDITION. NO S/S OF DISTRESS NOTED. V/S STABLE. DENIES ANY PAIN. SAFETY MEASURES AND INTEGRITY MAINTAINED. WILL CONTINUE TO MONITOR.
[2020-09-11 00:01] LABS: CALCIUM 7.7 mg/dL (8.5-10.1); CARBON DIOXIDE 18.2 mmol/L (21-32); CREATININE SERUM 1.6 mg/dL (0.7-1.3); POTASSIUM SERUM 3.6 mmol/L (3.5-5.1)
--- NOTE | 2020-09-11 02:00 | NUR ---
PT STABLE. NO S/S OF DISTRESS. V/S STABLE. SAFETY MEASURES AND INTEGRITY MAINTAINED. WILL CONTINUE TO MONITOR.
--- NOTE | 2020-09-11 06:00 | NUR ---
PT STABLE. NO S/S OF DISTRESS NOTED. V/S STABLE. SAFETY MEASURES AND INTEGRITY MAINTAINED. WILL CONTINUE TO MONITOR.
--- NOTE | 2020-09-11 06:15 | NUR ---
RIGHT ARM SWOLLEN. IV INFILTRATED. RED AND WARM TO TOUCH. EXTREMITY ELEVATED AND ICE APPLIED. SAFETY MEASURES AND INTEGRITY MAINTAINED. WILL CONTINUE TO MONITOR.
--- NOTE | 2020-09-11 07:00 | NUR ---
REPORT GIVEN TO ISIDORO BUTTS FOR CONTINUITY OF CARE. SAFETY MEASURES AND INTEGRITY MAINTAINED. LEFT PT IN STABLE CONDITION.
[2020-09-11 07:48] VITALS: Ht 165.1 cm; Wt 65.8 kg
[2020-09-11 08:00] VITALS: BP 119/61
--- NOTE | 2020-09-11 08:02 | NUR ---
PT. RECEIVED IN BED SLEEPING BUT AWAKEN TO VOICE.NO ACUTE DISTRESS NOTED.LAST BS 185MG/DL.PT KEPT NPO.
[2020-09-11 12:00] VITALS: BP 99/56
[2020-09-11 12:34] LABS: BASOPHIL % 0.2 % (0-2); PLATELET COUNT 220 x10^3mcL (130-400); RED CELL DISTRIBUTION WIDTH 12.6 % (11.5-14.5)
[2020-09-11 12:45] LABS: CALCIUM 9.2 mg/dL (8.5-10.1); CARBON DIOXIDE 24.3 mmol/L (21-32); CHLORIDE SERUM 104 mmol/L (98-107); CREATININE SERUM 1.3 mg/dL (0.7-1.3); GFR1 > 60 mL/min; GLUCOSE SERUM 160 mg/dL (74-106); MAGNESIUM 2.1 mg/dL (1.8-2.4); PHOSPHOROUS 1.7 mg/dL (2.5-4.9); POTASSIUM SERUM 3.4 mmol/L (3.5-5.1); SODIUM SERUM 136 mmol/L (136-145)
[2020-09-11 14:32] LABS: BASOPHIL % 0.2 % (0-2); PLATELET COUNT 227 x10^3mcL (130-400); RED CELL DISTRIBUTION WIDTH 12.9 % (11.5-14.5)
[2020-09-11 15:07] LABS: CALCIUM 8.4 mg/dL (8.5-10.1); CARBON DIOXIDE 21.9 mmol/L (21-32); CREATININE SERUM 1.4 mg/dL (0.7-1.3); MAGNESIUM 2.1 mg/dL (1.8-2.4); PHOSPHOROUS 1.4 mg/dL (2.5-4.9); POTASSIUM SERUM 3.2 mmol/L (3.5-5.1)
[2020-09-11 16:00] VITALS: BP 99/57
--- NOTE | 2020-09-11 17:00 | NUR ---
PT ALERT AND ORIENTED*4.PT HAD EPISODE OF HYPOGLYCERMIA.POST INTERVENTION BLOOD SUGAR 116MG/DL.PT NOW ON AC&HS SUGAR CHECK.TOLERATING DIET WELL.NO N/V NOTED.VSS.NEEDS ARE BEING MET.
[2020-09-11 20:00] VITALS: BP 124/71
--- NOTE | 2020-09-11 20:00 | NUR ---
RECEIVED REPORT PATIENT IS AWAKE ALERT ORIENTED FOLLOWING COMMAND MOVES ALL EXTREMITIES WELL PATIENT IS ON ROOM AIR AND IS SATURATING 100%. PATIENT IS USING THE URINAL TO VOID.
--- NOTE | 2020-09-11 20:45 | NUR ---
PATIENT RECEIVED HIS REGULAR DOSING OF LANTUS 15 UNITS.
[2020-09-11 21:00] VITALS: BP 124/71
--- NOTE | 2020-09-11 21:00 | NUR ---
COVERED THE 365 BLOOD SUGAR WITH I5 UNITS OF HUMULIN R
[2020-09-11 22:00] VITALS: BP 145/92
[2020-09-12] VITALS (7 sets, daily range): BP systolic 119–162; BP diastolic 78–102
--- NOTE | 2020-09-12 | NUR ---
MEDICATED WITH TYLENOL FOR HEADACHE.
--- NOTE | 2020-09-12 01:35 | NUR ---
PATIENT CLAIMED THE TYLENOL IS NOT WORKING,HE STATED HE TAKES MOTRIM AT HOME .PATIENT ALSO COMPLANIED HE CANT GO TO SLEEP,PATIENT APPEARS ANXIOUS AND RESTLESS ,TOSSING AROUND IN BED TAKING OFF HIS COVERS.
--- NOTE | 2020-09-12 05:39 | NUR ---
PATIENT COMPLAINED HE HASNT SLEPT AND NOW HIS NEW COMPLAIN IS HIS THROAT.
[2020-09-12 06:28] LABS: BASOPHIL % 0.5 % (0-2); PLATELET COUNT 197 x10^3mcL (130-400); RED CELL DISTRIBUTION WIDTH 12.9 % (11.5-14.5)
[2020-09-12 06:48] LABS: CALCIUM 8.5 mg/dL (8.5-10.1); CARBON DIOXIDE 25.4 mmol/L (21-32); CHLORIDE SERUM 105 mmol/L (98-107); GFR1 > 60 mL/min; GLUCOSE SERUM 87 mg/dL (74-106); MAGNESIUM 1.9 mg/dL (1.8-2.4); PHOSPHOROUS 2.2 mg/dL (2.5-4.9); POTASSIUM SERUM 3.3 mmol/L (3.5-5.1); SODIUM SERUM 138 mmol/L (136-145)
--- NOTE | 2020-09-12 07:30 | NUR ---
PT RECEIVED IN BED SLEEPING BUT AWAKEN EASILY.CARE ASSURED.NO ACUTE DISTRESS NOTED.PT DKA RESOLVED,NOW ON ACCU CHECK AC&HS.B/P STABLE.AFEBRILE.PT IS MED/SURG, WAITING FOR AVAILABLE NURSE AND BED @ THIS TIME.
--- NOTE | 2020-09-12 10:40 | NUR ---
PATIENT ARRIVED FROM ICU VIA WHEELCHAIR WITH [facility], ICU NURSE. PATIENT IS A&OX4, FOLLOWS COMMANDS AND COOPERATES WELL. MEDSURG PATIENT, DENIES CHEST PAIN. PERIPHERAL PULES PALPABLE W/ NO SIGNS OF EDEMA. LUNG SOUNSD CTA BILATERALLY, ON RA, O2 SAT 96%, DENIES SOB. NORMOACTIVE BSX4, ABD SOFT AND FLAT, DENEIS ABD PAIN. AMBULATORY. IV SITE IS CDI. PATIENT STATES HAVING SORE THROAT. BP IS ALSO 162/102. NOTIFIED DR. JARA OF PATIENT'S SORE THROAT AND ELEVATED BP. MD ORDERED APRESOLINE PO 50 MG TID PRN IF SBP IS GREATER THAN 160, AND CEPACOL LOZENGE PO Q2HP. NO FURTHER ORDERS AT THIS TIME. MD STATED HE WILL SEE THE PATIENT REQUESTED BY THE PATIENT.
--- NOTE | 2020-09-12 10:46 | NUR ---
PT TRANSFERRED TO ROOM 234A,MOVED TO ROOM 232B PER PT'S REQUEST,IN STABLE CONDITION.REPORT GIVEN TO ISIDORO HORTON IN 2N FOR CONTINUITY OF CARE.ALL BELONGING SENT WITH PT.POC DISCUSSED WITH PT.
--- NOTE | 2020-09-12 11:54 | NUR ---
PATIENT'S BLOOD SUGAR WAS 480. RECHECKED BS, AND PATIENT'S BS WAS 468. ADMINISTERED 21 UNITS OF INSULIN AND NOTIFIED DR. BLANTON PATIENT'S BS LEVELS. PLACED AN ORDER FOR AN A1C LAB DRAW IN ORDER TO READJUST LANTUS DOSAGE. NO FURTHER ORDERS AT THIS TIME. WILL CONTINUE TO MONITOR.
--- NOTE | 2020-09-12 15:05 | NUR ---
NOTIFIED DR. BLANTON THAT PATIENT;S A1C WAS 10.7, AND THAT BS RECHECKED WAS 458. MD WILL PUT IN ORDERS TO CHANGE LANTUS ORDER TO BID INSTEAD OF ONCE PER DAY. NO FURTHER ORDERS AT THIS TIME. WILL CONTINUE TO MONITOR PATIENT.
--- NOTE | 2020-09-12 18:54 | NUR ---
PATIENT REQUESTING CEPACOL. OTEHRWISE, PATIENT DENIES ANY PAIN OR DISCOMFORT AT THIS TIME. WILL CONTINUE TO MONITOR.
--- NOTE | 2020-09-12 19:50 | NUR ---
PT RECEIVED LYING IN BED SUPINE WATCHIGN TV. A/OX4, PLEASANT. RESPIRATIONS EVEN, UNLABORED, CTA, RA, DENIES SOB. REPORTS SORE THROAT. DENIES CHEST PAIN, LIGHTHEADEDNESS. PULSES STRONG, NO EDEMA NOTED. ABD SOFT AND FLAT, DENIES N/V, DIARRHEA. DENIES HYPO/HYPERGLYCEMIC S/S. MAITNAINS GOOD APPETITE. DENIES URINARY ISSUES. SKIN INTACT. AMBULATORY WITH STEADY GAIT. DENIES PAIN SL PATENT, NO COMPLICATIONS TO SITE. BED IN LOWEST POSITION, SIDE RAILS X 2, CALL LIGHT WITHIN REACH
--- NOTE | 2020-09-13 01:35 | NUR ---
PT SLEEPING IN BED SUPINE. RESPIRATIONS EVEN, UNLABORED. NON VERBAL PAIN INDICATORS ABSENT. IV LAC RUNNING 1/2NS @ 50ML/HR, PATENT, NO COMPLICATIONS TO SITE. BED IN LOWEST POSITION, SIDE RAILS X 2, CALL LIGHT WITHIN REACH
[2020-09-13 05:08] VITALS: BP 160/97
--- NOTE | 2020-09-13 06:26 | NUR ---
PT ALERT AND AWAKE. RESPIRATIONS UNLABORED. LAST SBP 160, HYDRALAZINE 50G ADMINISTERED. PT CONTINUES TO C/O THROAT PAIN, LOZENGE GIVEN X 2 AND WARM TEA, EFFECTIVE. NO BM. NO HYPO/HYPERGLYCEMIC EVENTS. LAST FS 165. IV L HAND (PAINFUL) AND LAC (LEAKING) D/C. RESTART TO RFA 22G RUNNING 1/2NS@50ML/HR, PATENT, NO COMPLICATIONS TO SITE. NO FALLS OR INJURIES SUSAINED DURING SHIFT. BED IN LOWEST POSITION, SIDE RAILS X 2, CALL LIGHT WITHIN REACH
[2020-09-13 07:16] LABS: CALCIUM 8.9 mg/dL (8.5-10.1); CARBON DIOXIDE 28.9 mmol/L (21-32); CHLORIDE SERUM 99 mmol/L (98-107); CREATININE SERUM 0.8 mg/dL (0.7-1.3); GFR1 > 60 mL/min; GLUCOSE SERUM 150 mg/dL (74-106); MAGNESIUM 1.8 mg/dL (1.8-2.4); PHOSPHOROUS 3.8 mg/dL (2.5-4.9); POTASSIUM SERUM 3.7 mmol/L (3.5-5.1); SODIUM SERUM 137 mmol/L (136-145)
--- NOTE | 2020-09-13 07:30 | NUR ---
RECEIVED PATIENT RESTING IN BED, NO ACUTE DISTRESS NOTE. PATIENT AAOX4, DENIES HEADACHE. PATIENT DENIES CHEST PAIN. PULSES PALPABLE X4,, NO EDEMA NOTED. LUNG SOUNDS CTA, PATIENT DENIES SOB ON ROOM AIR. PATIENT REPORTS OF SORE THROAT, WILL MEDICATE PER PROTOCOL. PATIENT VOIDS FREELY, DENIES DYSURIA. PATIENT AMBULATORY, NO WEAKNESS NOTED. 1/2 NS INFUSING TO RFA AT 500CC/HR, IV SITE CDI&PATENT. CALL LIGHT WITHIN REACH, BED IN LOW POSITION, WILL CONTINUE TO MONITOR.
[2020-09-13 08:53] VITALS: BP 144/87
[2020-09-13 12:21] VITALS: BP 155/103
--- NOTE | 2020-09-13 13:35 | NUR ---
PATIENT WAS C/O SORENESS IN THE THROAT, MEDICATED PATIENT WITH CEPACOL PER PROTOCOL (SEE EMAR). PATIENT REQUESTED FOR SOUPS, PATIENT STATED HIS MEAL WAS DIFFICULT TO EAT. WILL ORDER A SOUP FOR THE PATIENT AT THIS TIME. ALL NEEDS MET WILL CONTINUE TO MONITOR.
--- NOTE | 2020-09-13 13:35 | NUR ---
PATIENT WAS C/O SORE THROAT, MEDICATED PATIENT WITH CEPACOL PER PROTOCOL (SEE EMAR). ALL NEEDS MET AT THIS TIME. WILL CONTINUE TO MONITOR.
[2020-09-13 16:59] VITALS: BP 154/100
--- NOTE | 2020-09-13 17:06 | NUR ---
Initial Nutrition Assessment: Mag B JONH MAR A 59M HR [place] Dx: Diabetic Ketoacidosis PMHx: IDDM with h/o DKA PSHx: none Labs: (09/13) BG 150H *BUN & CR wnl (09/12) A1C 10.7H, RBC 3.89L, H/H 12.4L/36L, NEUT% 73.7H, LYMPH% 17.9L, (09/10) PH 6.9, PCO2 13.7, PO2 130.9H, HCO3 3.0L, BE -27.4L, COHB 0.3L, Lipase 988H Meds: Cepacol Lozen, Humulin, Apresoline, Sodium Chloride, Zovirax, Heparin, Lantus, Ceftriaxone Diet: CCHO, 60 gm PO intake since admission: (09/12) 75%, D: 80%, Average 77% x 2 meals Ht: 165 cm/65 in Wt: 65.77kg/145 lbs BMI: 24.1 kg/m2 Bed scale: non-functional IBW: 62kg/136 lbs %IBW: 107% UBW: 61 kg/135 lbs Age: 59 y/o Food Allergies: none per pt Edema: no edema Last BM: 09/12 Skin: intact Juan Carlos: 21 Per consultation report (09/10) This is a 59-year-old male with h/o DM who presented with multiple episodes of nausea and vomiting for 3 days. He feels weak and dizzy. He has associated abdominal pain. He states he is compliant with his diabetes medications. Upon arrival pt was hypotensive and found to have BS over 1000 and K 6.8 with severe DKA and RENE. Nephrology consulted for further evaluation and management. Pt was admitted with dx: RENE due to prerenal azotemia/intravascular volume contraction in setting of DKA, Hyperkalemia, DKA, Hypovolemic shock, IDDM, Pancreatitis Hyponatremia associated with severe hyperglycemia RD Note (09/13) Per progress note (09/13) Still reports sore throat, sugars are now under control, During visit, pt was lying in bed, alert, oriented in person, place, and time. Pt was having lunch, and he stated that it was very hard to swallow his food d/t sore throat. Pt requested to have soups or moister foods that can be less hard for his throat. Pt denied any N/V/D/C, and he reported last normal BM yesterday. Pt stated that at home, he goes long periods of time without food, and then he eats a lot of food. He was aware that it can be harmful for his BG. Pt was very interested in diabetes education and stated he would like to come to the diabetes classes in the future. Problem with: N/V/D/C: none per pt Problems with: Chewing: Swallowing: none per pt, but it is painful to swallow food d/t sore throat Current appetite: good Recent wt change: 12 lbs weight loss in 2 months %wt change: 7.6% in 2 months Height: 65 in per Vitamin/Supplement use: MVI, Vitamin C, Cinnamon pills pet pt Special diet at home: none per pt Physical activity: none per pt Nutrition education given (specify specific nutrition education and handout given): Pt received nutrition education about the importance of consuming carbohydrates in moderation/potions. Explained portions of carbohydrates and provided examples. Explained how to read food label for carbohydrate counting. Written materials: "Carbohydrate Counting for People with Diabetes," and "Diabetes Label Reading Tips" from [facility] were provided to pt and he acknowledge understanding. Food-drug interactions? Education given? n/a Estimated Nutritional Needs Based on ideal body weight (62 kg) Energy:1550 - 1860 kcal/day (25 - 30 kcal/kg for DKA) Protein: 79 - 99 g/day (1.2 - 1.5 g/kg pancreatitis) Fluid: 1550 - 1860 mL/day (1 mL/kcal) Nutrition Diagnosis: 1. Altered nutrition related lab values r/t DKA a/e/b pt's BG 1050 at admission Intervention 1. Recommend continue with CCHO, 60 gm diet 2. Add soups with meals. Add food preferences as needed. Monitor/Evaluate Goal: PO intake at least 75% of estimated needs Monitor: PO intake, Labs, GI function F/U in days as risk
--- NOTE | 2020-09-13 17:06 | NUR ---
1. Recommend continue with CCHO, 60 gm diet 2. Add soups with meals. Add food preferences as needed.
--- NOTE | 2020-09-13 18:00 | NUR ---
PATIENT WAS C/O SORE THROAT, MEDICATED PATIENT WITH CEPACOL PER PROTOCOL (SEE EMAR). ALL NEEDS MET AT THIS TIME. WILL CONTINUE TO MONITOR.
--- NOTE | 2020-09-13 19:35 | NUR ---
RECEIVED PT FROM DAYSORFT NURSE. PT IS AAOX4, DENIES HEADACHE/NAUSEA/DIZZINESS. PT IS MED SURG PATIENT, DENIES CHEST PAIN. PULSES ARE EQUAL BILATERALLY, NO EDEMA NOTED. PULSES ARE EQUAL BILATERALLY, NO EDEMA NOTED. ABDOMEN IS SOFT AND ROUND, NO PAIN UPON PALPATION. NORMOACTIVE X4 QUADRANTS, LAST BM 09/12. PT VOIDS FREELY. PT DENIES GENERALIZED WEAKNESS, ABLE TO AMBULATE W/O DIFFICULTY. SKIN DRY AND INTACT, NO LESIONS NOTED. IV TO RFA 22G, SITE INTACT, NO REDNESS OR SWELLING NOTED. PT REPORTS CONSISTENT THROAT PAIN, ALLEVIATED WITH MEDICATION PRN. ALL SAFETY MEASURES IN PLACE. BED IN LOWEST POSITION, CALL LIGHT WITHIN REACH. WILL CONTINUE TO MONITOR.
[2020-09-13 21:16] VITALS: BP 159/100
--- NOTE | 2020-09-14 00:01 | NUR ---
PATIENT RESTING INTERMITTENTLY WITH EYES CLOSED. PT REMAINS WITH 2.5L NC, DENIES SOB, NO ACUTE DISTRESS NOTED. PATIENT DOES REPORT TO HAVE SCRATCHED WOUNDS IN BLE DURING THE DAY, DRIED BLOOD NOTED. ALL SAFETY MEASURES IN PLACE. BED IN LOWEST POSITION, CALL LIGHT WITHIN REACH. WILL CONTINUE TO MONITOR.
--- NOTE | 2020-09-14 03:54 | NUR ---
PATIENT COMPLAINED OF GENERALIZED WEAKNESS STATING HE FELT S/S OF HYPOGLYCEMIA. PROVIDED PATIENT WITH ORANGE JUICE AND FOOD. WILL RE-ASSESS BS IN 20 MIN. COMMUNICATED WITH DOCTOR REGARDING LOW SUGAR LEVELS. ALL SAFETY MEASURES IN PLACE. BED IN LOWEST POSITION, CALL LIGHT WITHIN REACH. WILL CONTINUE TO MONITOR.
[2020-09-14 03:59] VITALS: BP 154/104
--- NOTE | 2020-09-14 04:32 | NUR ---
BS WAS RECHECKED, 139. PATIENT STATES WEAKNESS HAS DECREASED. WILL COMMUNICATE WITH DR. TSAI. ALL SAFETY MEASURES IN PLACE. BED IN LOWEST POSITION, CALL LIGHT WITHIN REACH. WILL CONTINUE TO MONITOR.
[2020-09-14 05:04] VITALS: BP 159/100
--- NOTE | 2020-09-14 06:54 | NUR ---
PT RESTED INTERMITTENTLY WITH EYES CLOSED. PATIENT HAD AN EPISODE DURING THE NIGHT IN WHICH HE COMMUNICATED S/S OF HYPOGLYCEMIA. BS WAS CHECKED AND ORANGE JUICE/ SNACKS WERE GIVEN. UPON RECHECKED BS WAS 139. PATIENT STATED HE FELT BETTER. CHANGED GOWN FOR PATIENT AND PROVIDED CARE. ALL SAFETY MEASURES IN PLACE. BED IN LOWEST POSITION, CALL LIGHT WITHIN REACH. WILL CONTINUE TO MONITOR.
--- NOTE | 2020-09-14 07:00 | NUR ---
REC'D PT FROM NIGHT RN. PT RESTING IN BED AAOX4. RES E/U, DENIES SOB ON RA. NON TELE PT. NO ACUTE DISTRESS NOTED. DENIES PAIN/DISCOMFORT AT THIS TIME. IV TO RFA INFUSING WELL. OTHERWISE, VSS
[2020-09-14 07:51] VITALS: BP 144/97
--- NOTE | 2020-09-14 09:49 | NUR ---
PT C/O SORE THROAT, GIVEN CEPACOL PER EMAR
--- NOTE | 2020-09-14 10:15 | NUR ---
PT C/O DIZZINESS AND SWEATING, CHECKED BLOOD GLUCOSE, BS LEVEL 178.
[2020-09-14 11:41] VITALS: BP 139/99
--- NOTE | 2020-09-14 13:20 | NUR ---
PT C/O SORETHROAT, GIVEN CEPACOL PER EMAR
--- NOTE | 2020-09-14 14:56 | NUR ---
DIETITIAN CO-SIGN The Nutrition Notes documented by the Watershed Engineer have been reviewed. Reviewed/Co-Signed by: Lenin Post Documentation Done by: LENIN Stinson
[2020-09-14 16:08] VITALS: BP 130/86
--- NOTE | 2020-09-14 18:57 | NUR ---
PT RESTING COMFORTABLY. NO ACUTE DISTRESS NOTED. NO SIGNIFICANT CHANGES NOTED. WILL ENDROSE CARE TO NEXT SHIFT
--- NOTE | 2020-09-14 19:35 | NUR ---
RECEIVED REPORT FROM DAY SHIFT RN. PT RESTING IN BED. AA&O X4. NO SOB ON ROOM AIR. BREATHING EVEN AND UNLABORED. NO C/O CHEST PAIN. NO C/O N/V/ABD PAIN. C/O SORE THROAT, WILL MEDICATE PER ORDER. IV TO RFA, 1/2 NS AT 50 ML/HR INFUSING. SAFETY MEASURES IN PLACE. INSTRUCTED PT TO CALL IF ASSISTANCE IS NEEDED. CALL LIGHT WITHN REACH.
[2020-09-14 20:50] VITALS: BP 147/97
[2020-09-15 05:05] VITALS: BP 117/78
--- NOTE | 2020-09-15 06:36 | NUR ---
PT RESTED IN INTERVALS THROUGHOUT SHIFT. BREATHING EVEN AND UNLABORED ON ROOM AIR. NO C/O SOB. PT C/O SORE THROAT, CEPACOL GIVEN X4. HERPES PANEL PENDING RESULTS. PT ON ROCEPHIN AND ACYCLOVIR. IV TO RFA, PATENT AND INTACT. SAFETY MEASURES IN PLACE. CALL LIGHT WITHIN REACH. WILL ENDORSE CARE TO DAY SHIFT RN.
--- NOTE | 2020-09-15 08:00 | NUR ---
RECEIVED REPORT FROM ADRYAN RIVERA RN, PT SLEEPING IN BED, IN NO APPARENT ACUTE DISTRESS, RESP E/U, RA, NO COUGH/WHEZZING/SOB, CHEST RISE SYMMETRICALLY, MEDSURG, ABD FLAT/NONTENDER, BS ACTIVE X 4, CONTINENT, AMB, BRP, IV PATENT, DRESSING CDI, PALP PULSES, CAP REFILL < 2S, SKIN C/D/W, ALL NEEDS ADDRESSED, SAFETY PROTOCOL FOLLOWED, WILL MONITOR
[2020-09-15 08:54] VITALS: BP 151/105
--- NOTE | 2020-09-15 09:05 | NUR ---
AM MED GIVEN PER ORDER, TOLERATED WELL, EDU PT R/T MED, VERBALLY UNDERSTANDING, TOLERATED BREAKFAST WELL, DENIED PAIN/DISCOMFORT, DENIED SIERRA/N/V/D, DENIED CP/PALP, ALL NEEDS ADDRESSED, WILL MONITORY
[2020-09-15 10:45] VITALS: BP 151/105
[2020-09-15 10:47] LABS: PLATELET COUNT 259 x10^3mcL (130-400); RED CELL DISTRIBUTION WIDTH 12.9 % (11.5-14.5)
[2020-09-15 11:20] LABS: CALCIUM 9.1 mg/dL (8.5-10.1); CARBON DIOXIDE 31.3 mmol/L (21-32); CHLORIDE SERUM 100 mmol/L (98-107); CREATININE SERUM 1.2 mg/dL (0.7-1.3); GFR1 > 60 mL/min; GLUCOSE SERUM 342 mg/dL (74-106); POTASSIUM SERUM 5.2 mmol/L (3.5-5.1); SODIUM SERUM 136 mmol/L (136-145)
[2020-09-15 11:27] LABS: BAND NEUTROPHIL 4 % (0-10); SEGMENTED NEUTROPHILS 62 % (37-75)
[2020-09-15 11:28] LABS: MONOCYTE 11 % (0-7); rbc morphology (normal/abnorm) NORMAL (NORMAL)
[2020-09-15] MEDS ORDERED: LEVEMIR100 U/M1 SQ (11:53)
--- NOTE | 2020-09-15 12:30 | NUR ---
PT RESTING IN BED, IN NO ACUTE DISTRESS, FAY ULLOA, ADAM PT R/T BS MONITOR, INSULIN, ASE, VERBALLY UNDERSTANDING, JESUS DM EDUCATOR AWARE PT DC TODAY W/ HX DKA, SAID WILL COME TO EDU PT FOR FURTHER INFO, CN AWARE, WILL MONITOR
[2020-09-15 12:44] VITALS: BP 164/101
[2020-09-15 15:30] VITALS: BP 146/99
--- NOTE | 2020-09-15 15:32 | NUR ---
DC PAPER SIGNED BY PT, EDU PT R/T MED, INSULIN, VERBALLY UNDERSTANDING, PER PT, HE STILL HAVE LOT OF METFORMIN 1000MG TABS AND INSULIN 70/30 AND DETEMIR/LEVEMIR, LANTUS AT HOME, CN AWARE, IV REMOVED, NO ACTIVE BLEEDING NOTED, VS STABLE, PT CALLED SON TO P/U VIA FAMILY VEHICLE, PT AWARE TO BE ASSISTED TO LOBBY BY NURSING STAFF VIA WC. PT DC HOME.
== END 2020-09-15 16:16 | disposition home or self-care (01) | DRG 420 ==
LOC: ED 10:25 → IC 12:06 → DU 12:06 → IC 19:04 → DU 09-12 10:25 → MU 09-12 17:05
PROVIDERS: Emergency Medicine; Hospitalist; Internal Medicine; Internal Medicine Pulmonary Disease; ADMIT Internal Medicine; ATTEND Internal Medicine
DX: E11.10 Type 2 diabetes mellitus with ketoacidosis without coma (principal); R57.1 Hypovolemic shock; K85.90 Acute pancreatitis without necrosis or infection, unspecified; N17.9 Acute kidney failure, unspecified; I95.9 Hypotension, unspecified; E87.5 Hyperkalemia; E11.65 Type 2 diabetes mellitus with hyperglycemia; E87.1 Hypo-osmolality and hyponatremia; I10 Essential (primary) hypertension; R10.9 Unspecified abdominal pain; F17.210 Nicotine dependence, cigarettes, uncomplicated; F12.10 Cannabis abuse, uncomplicated; Z79.899 Other long term (current) drug therapy; Z79.4 Long term (current) use of insulin; Z20.828 Contact with and (suspected) exposure to other viral communicable diseases
CPT/HCPCS: 82962; 83880; 86694; G0378; J0610; J0696; J1644; J1815; J3490; J7030; Q0092